=== PATIENT | female | born 1995 | race Caucasian/White ===

== ENCOUNTER → 2017-03-02 | Outpatient (CLI) | payer SELFPAY | END | disposition home or self-care (01) | LOC: LABWHC1 12:01 | PROVIDERS: ATTEND Obstetrics & Gynecology | DX: Z34.00 Encounter for supervision of normal first pregnancy, unspecified trimester (principal); Z3A.00 Weeks of gestation of pregnancy not specified | CPT/HCPCS: 36415; 84702 ==

== ENCOUNTER 2017-11-22 11:56 | Emergency (ER) | payer OTHER ==
--- NOTE | 2017-11-22 13:19 | ED ---
Female Urogenital HPI - General Chief complaint: Vaginal Bleeding Stated complaint: and bleeding Time Seen by Provider: 11/22/17 12:30 Source: patient, family, RN notes reviewed, old records reviewed Mode of arrival: ambulatory Limitations: no limitations - History of Present Illness Initial comments: 22-year-old female presents emergency room with a chief complaint of vaginal bleeding. She reports that she is a proximally 5-6 weeks . She states that she started bleeding last night. She states that she has had one previous miscarriage. She was supposed to follow-up with Dr. Gibbs but has not been able to yet. She denies any significant pain. Last Menstrual Period: 10/19/17 - Related Data Home Medications Medication Instructions Recorded Confirmed No Known Home Medications [No 11/22/17 11/22/17 Known Home Medications] Allergies Allergy/AdvReac Type Severity Reaction Status Date / Time No Known Allergies Allergy Verified 11/22/17 13:14 Review of Systems ROS Statement: Those systems with pertinent positive or pertinent negative responses have been documented in the HPI. ROS Other: All systems not noted in ROS Statement are negative. Constitutional: Denies: fever, chills Eyes: Denies: eye pain ENT: Denies: ear pain Respiratory: Denies: cough, dyspnea Cardiovascular: Denies: chest pain, palpitations Endocrine: Denies: fatigue Gastrointestinal: Denies: abdominal pain, nausea, melena Genitourinary: Reports: abnormal menses Musculoskeletal: Denies: back pain Skin: Denies: lesions Neurological: Denies: headache, weakness Psychiatric: Denies: anxiety Past Medical History Past Medical History: No Reported History History of Any Multi-Drug Resistant Organisms: None Reported Past Surgical History: No Surgical Hx Reported Past Psychological History: No Psychological Hx Reported Smoking Status: Current every day smoker Past Alcohol Use History: None Reported Past Drug Use History: Marijuana General Exam - General Exam Comments Initial Comments: This patient is a 22-year-old female. No acute distress. Limitations: no limitations General appearance: alert, in no apparent distress Head exam: Present: atraumatic, normocephalic, normal inspection Eye exam: Present: normal appearance, PERRL, EOMI. Absent: scleral icterus, conjunctival injection, periorbital swelling ENT exam: Present: normal exam, mucous membranes moist Neck exam: Present: tenderness Respiratory exam: Present: normal lung sounds bilaterally External exam: Present: normal external exam Speculum exam: Present: vaginal bleeding (Cervix appears closed with patient does have bright red then vaginal bleeding. No significant clots.). Absent: normal speculum exam By manual exam: Present: normal by manual exam. Absent: cervical motion tenderness, adnexal tenderness, adnexal mass, uterine enlargement Extremities exam: Present: normal inspection, full ROM, normal capillary refill. Absent: tenderness, pedal edema, joint swelling, calf tenderness Back exam: Present: normal inspection Neurological exam: Present: alert, oriented X3, CN II-XII intact Psychiatric exam: Present: normal affect, normal mood Skin exam: Present: warm, dry, intact, normal color. Absent: rash Course Vital Signs 11/22/17 11/22/17 12:17 14:35 Temperature 98.7 F 98.0 F Pulse Rate 102 H 82 Respiratory 18 20 Rate Blood Pressure 128/73 118/74 O2 Sat by Pulse 100 99 Oximetry Medical Decision Making - Medical Decision Making 22-year-old female who says that she is approximately five weeks report she said one day vaginal bleeding. She has no significant cramping. Patient has a positive blood type. Serum hCG is 61. This is very low for 5 to 6 weeks of . Discussed the abdominal ultrasound did not show any evidence of intrauterine .Endometrium is not thickened. Patient does have significant bleeding on vaginal exam. Patient informed that she's having a miscarriage. Discuss repeat serum hCG in two days. All questions were answered and return parameters were discussed. - Lab Data Lab Results 11/22/17 11/22/17 11/22/17 Range/Units 12:00 12:41 12:41 HCG, Quant mIU/mL Urine Color Urine Appearance (Clear) Urine pH (5.0-8.0) Ur Specific Mc[place] (1.001-1.035) Urine Protein (Negative) Urine Glucose (UA) (Negative) Urine Ketones (Negative) Urine Blood (Negative) Urine Nitrite (Negative) Urine Bilirubin (Negative) Urine Urobilinogen (<2.0) mg/dL Ur Leukocyte Esterase (Negative) Urine RBC (0-5) /hpf Urine WBC (0-5) /hpf Ur Squamous Epith Cells (0-4) /hpf Urine Mucus (None) /hpf Urine HCG, Qual Not Detected (Not Detectd) Trichomonas Ag (Rapid) Negative (Negative) Blood Type O Positive Blood Type Recheck No 11/22/17 11/22/17 Range/Units 12:41 12:41 HCG, Quant 16.4 mIU/mL Urine Color Yellow Urine Appearance Clear (Clear) Urine pH 7.0 (5.0-8.0) Ur Specific Mc[place] 1.008 (1.001-1.035) Urine Protein Trace H (Negative) Urine Glucose (UA) Negative (Negative) Urine Ketones Negative (Negative) Urine Blood Moderate H (Negative) Urine Nitrite Negative (Negative) Urine Bilirubin Negative (Negative) Urine Urobilinogen <2.0 (<2.0) mg/dL Ur Leukocyte Esterase Negative (Negative) Urine RBC 157 H (0-5) /hpf Urine WBC 21 H (0-5) /hpf Ur Squamous Epith Cells 1 (0-4) /hpf Urine Mucus Rare H (None) /hpf Urine HCG, Qual (Not Detectd) Trichomonas Ag (Rapid) (Negative) Blood Type Blood Type Recheck - Radiology Data Radiology results: report reviewed Ultrasound was negative for intrauterine Disposition Clinical Impression: Threatened miscarriage in early Disposition: HOME SELF-CARE Condition: Good Instructions: Threatened Miscarriage (ED) Additional Instructions: Patient denies repeat her hCG levels with 2 days. Follow-up with [facility]. Return to emergency department if any alarming signs or symptoms occur. Referrals: None,Stated [Primary Care Provider] - 1-2 days Time of Disposition: 14:23
[2017-11-22 13:26] LABS: Appearance,Urine Clear (Clear); Bilirubin,Urine Negative (Negative); Blood,Urine Moderate (Negative); Color,Urine Yellow; Glucose,Urine (UA) Negative (Negative); Ketones,Urine Negative (Negative); Leukocyte Esterase,Urine Negative (Negative); Mucus,Urine Rare /hpf; Nitrite,Urine Negative (Negative); Protein,Urine Trace (Negative); RBC,Urine 157 /hpf (0-5); Specific Gravity,Urine 1.008 (1.001-1.035); Squamous Epithelial Cell,Urine 1 /hpf (0-4); Urobilinogen,Urine <2.0 mg/dL (<2.0); WBC,Urine 21 /hpf (0-5)
--- NOTE | 2017-11-22 14:21 | US ---
EXAMINATION TYPE: US OB <= 14 wk fetus DATE OF EXAM: 11/22/2017 COMPARISON: NONE CLINICAL HISTORY: pain. bleeding with EXAM PERFORMED: Transabdominal (TA) EXAM MEASUREMENTS: GESTATIONAL AGE / DATING Physician Established: not established Dates by LMP: (4 weeks/6 days) EDC: 07/26/2018 Dates by First Scan: this is first scan Dates by Current Scan for: no IUP identified MATERNAL ANATOMY Uterus: 7.2 x 3.9 x 4.1 cm Right Ovary: 2.5 x 1.5 x 1.8 cm Left Ovary: 2.8 x 2.2 x 2.0 cm Post CDS / Adnexa: wnl Presence of free fluid: no free fluid GESTATION / SURVEY CRL: not identified MSD: not identified Yolk Sac (normal less than 6mm): not identified Date of LMP: 10/19/2017 Beta HcG (if available): 16.4 Anteverted uterus is seen. Endometrium only measures 6 mm in thickness on transabdominal evaluation. No gestational sac, yolk sac, or pole is identified. No free fluid is seen in pelvic cul-de-sac . Both ovaries are seen. No suspicious extraovarian adnexal masses are noted. IMPRESSION: Ultrasound findings when correlated with beta-hCG either reflect spontaneous or too early to visualize intrauterine , former would be favored if there is significant bleeding. Ectopic is not entirely excluded. Serial beta hCG and ultrasound follow-up is advised.
[2017-11-22 14:36] VITALS: BP 118/74; PULSE 82; RESP 20; TEMP 98
[2017-11-23 09:49] LABS: Chlamydia trachomatis rRNA Not detected (Not detected); Neisseria gonorrhoeae rRNA Not detected (Not detected)
== END 2017-11-22 14:36 | disposition home or self-care (01) ==
LOC: EC 11:56
DX: O20.0 Threatened abortion (principal); O99.331 Smoking (tobacco) complicating pregnancy, first trimester; F17.200 Nicotine dependence, unspecified, uncomplicated; Z3A.01 Less than 8 weeks gestation of pregnancy
CPT/HCPCS: 36415; 76801; 81001; 81025; 84702; 86900; 86901; 87070; 87205; 87491; 87591; 87808; 99284

== ENCOUNTER → 2017-11-24 | Outpatient (CLI) | payer OTHER | END | disposition home or self-care (01) | LOC: LABWHC1 15:17 | PROVIDERS: ATTEND Physician Assistant Medical | DX: O20.0 Threatened abortion (principal); Z3A.00 Weeks of gestation of pregnancy not specified | CPT/HCPCS: 36415; 84702 ==

== ENCOUNTER → 2018-02-16 | Outpatient (CLI) | payer OTHER | END | disposition home or self-care (01) | LOC: LABWHC1 11:14 | PROVIDERS: ATTEND Obstetrics & Gynecology | DX: Z34.80 Encounter for supervision of other normal pregnancy, unspecified trimester (principal); Z3A.00 Weeks of gestation of pregnancy not specified | CPT/HCPCS: 36415; 84702; 86850; 86900; 86901 ==

== ENCOUNTER → 2018-02-18 | Outpatient (CLI) | payer OTHER ==
--- NOTE | 2018-02-19 14:17 | US ---
EXAMINATION TYPE: Transabdominal DATE OF EXAM: 01/25/18 COMPARISON: NONE CLINICAL HISTORY: 23-year-old female O46.91 BLEEDING SPOTTING. EXAM PERFORMED: Transabdominal (TA) FINDINGS: EXAM MEASUREMENTS: GESTATIONAL AGE / DATING Physician Established: not established Dates by LMP: (5 weeks/1 days) EDC: 10/20/2018 Dates by First Scan: this is first scan Dates by Current Scan for: by gestational sac only (5 weeks/1 days) EDC: 10/20/2018 MATERNAL ANATOMY Uterus: 7.9 x 4.3 x 5.9cm Right Ovary: 2.7 x 1.4 x 2.7 cm Left Ovary: 3.0 x 1.4 x 2.5 cm Post CDS / Adnexa: no free fluid GESTATION / SURVEY CRL: not identified MSD: 1.1 cm ( 5 weeks/1 days) Yolk Sac (normal less than 6mm): 0.4 cm Date of LMP: 01/13/2018 Boat Outfitter notes: Appears as normally developing early , gestational sac and yolk sac seen. GS measures 5 weeks one day, and correlates with LMP. IMPRESSION: 1. Single live uterine with estimated gestational age of 5 weeks 1 day which is concordant with measurements. Gestational sac and yolk sac are seen at this time. Follow-up can be considered to ensure the appearance of a pole with cardiac activity. 2. Otherwise, complete survey recommended at 18-20 weeks.
== END | disposition home or self-care (01) ==
LOC: RADUSWWP 15:33
PROVIDERS: ATTEND Obstetrics & Gynecology
DX: O46.91 Antepartum hemorrhage, unspecified, first trimester (principal); Z3A.01 Less than 8 weeks gestation of pregnancy
CPT/HCPCS: 76801

== ENCOUNTER → 2018-03-01 | Outpatient (CLI) | payer OTHER ==
--- NOTE | 2018-03-01 12:40 | US ---
EXAMINATION TYPE: Transabdominal DATE OF EXAM: 01/25/18 COMPARISON: NONE CLINICAL HISTORY: 23-year-old female Z36. Dates. Re-evaluate. EXAM PERFORMED: Transabdominal (TA) FINDINGS: EXAM MEASUREMENTS: GESTATIONAL AGE / DATING Dates by LMP: (6 weeks/5 days) EDC: 10/20/2018 Dates by First Scan: (6 weeks/5 days) EDC: 10/20/2018 Dates by Current Scan for: ( 7 weeks/2 days) EDC: 10/16/2018 MATERNAL ANATOMY Uterus: 8.5 x 6.0 x 4.7 cm Right Ovary: 4.0 x 2.0 x 1.6 cm Left Ovary: 3.6 x 2.0 x 1.3 cm Post CDS / Adnexa: no free fluid Presence of free fluid: no free fluid Presence of corpus luteal cyst: right ovarian lesion with peripheral blood flow= 2.5 x 1.1 x 1.1 cm s uggestive of a corpus luteum. Presence of subchorionic bleed: no GESTATION / SURVEY CRL: 1.1 cm (7 weeks/2 days) MSD: Seen, not measured Yolk Sac (normal less than 6mm): 2.6 mm Heart Rate: 144 bpm Rhythm: Normal IUP: Viable IUP Date of LMP: 01/13/2018, Proof Load Mechanic notes: Single live IUP measuring 7 weeks 2 days. IMPRESSION: 1. Single live intrauterine with estimated gestational age of 6 weeks 5 days by both LMP an d prior dating scan. Age by current ultrasound biometry (crown-rump length) is 7 weeks 2 days which e quates to 3 days more growth than expected, but is within acceptable limits. 2. A 2.5 cm right ovarian corpus luteum. 3. Complete survey recommended at 18-20 weeks.
== END | disposition home or self-care (01) ==
LOC: RADUSWWP 11:48
PROVIDERS: ATTEND Obstetrics & Gynecology
DX: Z36.89 Encounter for other specified antenatal screening (principal); Z3A.01 Less than 8 weeks gestation of pregnancy
CPT/HCPCS: 76801

== ENCOUNTER → 2018-07-09 | Outpatient (CLI) | payer OTHER ==
[2018-07-09 11:25] LABS: HCT 35.5 % (34.0-46.0); HGB 11.5 gm/dL (11.4-16.0); MCH 32.3 pg (25.0-35.0); MCHC 32.4 g/dL (31.0-37.0); MCV 99.5 fL (80.0-100.0); Mean Platelet Volume 7.2; Platelet Count 272 k/uL (150-450); RBC 3.57 m/uL (3.80-5.40); WBC 10.7 k/uL (3.8-10.6)
== END | disposition home or self-care (01) ==
LOC: LABWHC1 09:36
PROVIDERS: ATTEND Obstetrics & Gynecology
DX: Z34.82 Encounter for supervision of other normal pregnancy, second trimester (principal)
CPT/HCPCS: 36415; 82950; 85027

== ENCOUNTER 2018-10-05 15:25 | Outpatient (CLI) | payer OTHER ==
[2018-10-05 16:09] LABS: Basophils % (A) 0 %; Eosinophils # (A) 0.1 k/uL (0-0.7); Eosinophils % (A) 1 %; HCT 35.1 % (34.0-46.0); HGB 11.4 gm/dL (11.4-16.0); Lymphocytes # (A) 1.4 k/uL (1.0-4.8); Lymphocytes % (A) 13 %; MCH 31.5 pg (25.0-35.0); MCHC 32.6 g/dL (31.0-37.0); MCV 96.5 fL (80.0-100.0); Mean Platelet Volume 7.5; Monocytes # (A) 0.5 k/uL (0-1.0); Monocytes % (A) 5 %; Neutrophils # (A) 8.7 k/uL (1.3-7.7); Neutrophils % (A) 80 %; Platelet Count 266 k/uL (150-450); RBC 3.63 m/uL (3.80-5.40); RDW 13.2 % (11.5-15.5); WBC 10.9 k/uL (3.8-10.6)
[2018-10-05 16:14] LABS: Appearance,Urine Cloudy (Clear); Bacteria,Urine Occasional /hpf; Bilirubin,Urine Negative (Negative); Blood,Urine Negative (Negative); Budding Yeast,Urine Occasional /hpf; Color,Urine Yellow; Glucose,Urine (UA) Negative (Negative); Ketones,Urine Negative (Negative); Leukocyte Esterase,Urine Trace (Negative); Mucus,Urine Occasional /hpf; Nitrite,Urine Negative (Negative); PH, Urine 6.5 (5.0-8.0); Protein,Urine Trace (Negative); RBC,Urine 3 /hpf (0-5); Specific Gravity,Urine 1.019 (1.001-1.035); Squamous Epithelial Cell,Urine 6 /hpf (0-4); Urobilinogen,Urine <2.0 mg/dL (<2.0); WBC,Urine 8 /hpf (0-5)
[2018-10-05 16:20] LABS: ALT 30 U/L (9-52); AST 20 U/L (14-36); Blood Urea Nitrogen 9 mg/dL (7-17); LDH 397 U/L (313-618); Uric Acid 4.8 mg/dL (3.7-7.4)
[2018-10-05 16:46] LABS: Creatinine,Urine Random 179.7 mg/dL
--- NOTE | 2018-10-20 07:51 | P.MSEPDOC ---
Presenting Problems - Arrival Data Date of Arrival on Unit: 10/05/18 Time of Arrival on Unit: 15:25 Mode of Transport: Ambulatory - Complaint Comment: pt sent over from office by Dr. Gibbs for preeclampsia work up due to elevated bp in office, headaches and swelling, Medical History - Information : 3 Para: 0 Term: 0 : 0 Abortions: Spontaneous or Elective: 0 Number of Living Children: 0 Physician Notification (Pre) - Physician Notified Physician Notified Date: 10/05/18 Physician Notified Time: 16:54 Physician/Practitioner Notifed:: Dr. Godinez Spoke With: Dr. Godinez - Notification Comment Comment: Dr. Godinez battalion chief at this time, he was in dept and saw lab results and bp's, reactive nst, orders to discharge pt home, follow up at next scheduled appt on Oct 14 Disposition - Disposition OB Disposition: Triage, Discharge to home, Written follow up instructions reviewed Discharge Date: 10/05/18 Discharge Time: 17:05 I agree with the RN Medical Screening Exam: Yes Risk & Benefit of care provided described in d/c instruction: Yes Diagnosis: GESTATIONAL HTN W/O SIGNIFICANT PROTEINURIA, THIRD TRIMESTER
== END 2018-10-05 17:05 | disposition home or self-care (01) ==
LOC: FBPOP 15:25
PROVIDERS: ATTEND Obstetrics & Gynecology
DX: O13.3 Gestational [pregnancy-induced] hypertension without significant proteinuria, third trimester (principal); Z3A.00 Weeks of gestation of pregnancy not specified
CPT/HCPCS: 59025; 81001; 82565; 82570; 83615; 84156; 84450; 84460; 84520; 84550; 85025

== ENCOUNTER 2018-10-14 09:33 | Outpatient (CLI) | payer OTHER ==
[2018-10-14 12:35] VITALS: BP 125/72; PULSE 97; RESP 18; TEMP 97.3
--- NOTE | 2018-11-07 17:40 | P.MSEPDOC ---
Presenting Problems - Arrival Data Date of Arrival on Unit: 10/14/18 Time of Arrival on Unit: 09:33 Mode of Transport: Ambulatory - Complaint OB-Reason for Admission/Chief Complaint: Rule Out SROM Comment: pt thinks she had SROM at 0630 this am Medical History - Information : 3 Para: 0 Term: 0 : 0 Abortions: Spontaneous or Elective: 0 Number of Living Children: 0 - Gestational Age Gestational Age by ERICKA (wks/days): 39 Weeks and 1 Days - History Complications: GBS+ Review of Systems - Review of Systems Constitutional: No problems Breast: No problems ENT: No problems Cardiovascular: No problems Respiratory: No problems Gastrointestinal: No problems Genitourinary: No problems Musculoskeletal: No problems Neurological: No problems Skin: No problems Vital Signs - Temperature Temperature: 97.3 F Temperature Source: Temporal Artery Scan - Pulse Right Brachial Pulse Rate: 97 Pulse Assessment Method: Automatic Cuff - Respirations Respiratory Rate: 18 Oxygen Delivery Method: Room Air - Blood Pressure Right Arm Blood Pressure: 125/72 Blood Pressure Mean: 89 Blood Pressure Source: Automatic Cuff Medical Screen Scoring (Pre) - Cervical Exam Dilation: 0 cm = 0 Effacement: More than 50% = 2 Membranes: Intact - Uterine Contractions Frequency: N/A Duration: N/A Intensity: N/A - Maternal Vital Signs Maternal Temperature: N/A Signs of Preeclampsia: N/A Maternal Respirations: N/A - Pain Assessment Pain Scale Used: Numeric (1 - 10) Pain Intensity: 0 - Maternal Trauma Maternal Trauma: N/A - Assessment Baseline FHR: 120 Heart Rate - NICHD Category: Category I (Normal) = 0 NST: Reactive Position: N/A Station: N/A - Total Score Total Score (Pre): 2 - Level of Risk Level of Risk: Low (0-5) Physician Notification (Pre) - Physician Notified Physician Notified Date: 10/14/18 Physician Notified Time: 10:10 Physician/Practitioner Notifed:: Dr. Gibbs Spoke With: Dr. Gibbs New Order Received: Yes - Notification Comment Comment: Dr. Gibbs notified of negative amniosure, reactive nst, irregular contractions, and cervical exam, orders to discharge pt home Disposition - Disposition OB Disposition: Triage, Discharge to home, Written follow up instructions reviewed Discharge Date: 10/14/18 Discharge Time: 10:28 I agree with the RN Medical Screening Exam: Yes Risk & Benefit of care provided described in d/c instruction: Yes Diagnosis: FALSE LABOR AT OR AFTER 37 COMPLETED WEEKS OF GESTATION
== END 2018-10-14 10:30 | disposition home or self-care (01) ==
LOC: FBPOP 09:33
PROVIDERS: ATTEND Obstetrics & Gynecology
DX: O47.1 False labor at or after 37 completed weeks of gestation (principal); Z3A.39 39 weeks gestation of pregnancy
CPT/HCPCS: 59025; 84112; G0463; 99213

== ENCOUNTER 2018-10-15 04:20 | Inpatient (IN) | payer OTHER ==
[2018-10-15 05:11] VITALS: RESP 16
[2018-10-15] MEDS ORDERED: OXYTOCIN 10 UNIT/ML 1 ML VIAL IM PRN (05:41)
[2018-10-15] MEDS ORDERED: LIDOCAINE 0.5% (PF) 5 MG/ML (50 ML SDV) SQ PRN (05:41)
[2018-10-15] MEDS ORDERED: METHYLERGONOVINE 0.2 MG/ML 1 ML AMP IM PRN (05:41)
[2018-10-15] MEDS ORDERED: AMPICILLIN 2,000 MG in SODIUM CHLORIDE 0.9% 100 ML IVPB STA (05:41)
[2018-10-15] MEDS ORDERED: CARBOPROST TROMETHAMINE 250 MCG/ML 1 ML AMP IM PRN (05:41)
[2018-10-15] MEDS ORDERED: TERBUTALINE 1 MG/ML VIAL SQ PRN (05:41)
[2018-10-15] MEDS ORDERED: OXYTOCIN 20 UNITS/1000 ML NS 1,000 ML IV SCH ×2 (05:45→16:15)
[2018-10-15] MEDS: LACTATED RINGERS 1,000 ML IV SCH ×2 (06:00→10:54)
[2018-10-15] MEDS: BUTORPHANOL 1 MG/ML 1 ML VIAL IV PRN ×2 (06:06→08:04)
[2018-10-15 06:12] LABS: Basophils % (A) 0 %; Eosinophils # (A) 0.2 k/uL (0-0.7); Eosinophils % (A) 2 %; HCT 37.6 % (34.0-46.0); HGB 12.3 gm/dL (11.4-16.0); Lymphocytes # (A) 1.5 k/uL (1.0-4.8); Lymphocytes % (A) 11 %; MCH 31.7 pg (25.0-35.0); MCHC 32.7 g/dL (31.0-37.0); Mean Platelet Volume 6.9; Monocytes # (A) 0.6 k/uL (0-1.0); Monocytes % (A) 4 %; Neutrophils # (A) 11.7 k/uL (1.3-7.7); Neutrophils % (A) 82 %; Platelet Count 290 k/uL (150-450); RBC 3.87 m/uL (3.80-5.40); RDW 13.3 % (11.5-15.5); WBC 14.3 k/uL (3.8-10.6)
[2018-10-15 06:18] VITALS: BMI 27.8
[2018-10-15] MEDS: AMPICILLIN 1,000 MG in SODIUM CHLORIDE 0.9% 50 ML IVPB SCH ×2 (10:03→13:49)
[2018-10-15] MEDS ORDERED: fentaNYL (PF) 50 MCG/ML 5 ML AMP ONE (10:20)
[2018-10-15] MEDS ORDERED: ROPIVACAINE 5MG/ML 20ML VIAL ONE (10:20)
[2018-10-15] MEDS ORDERED: SODIUM CHLORIDE 0.9% 100 ML BAG ONE (10:20)
[2018-10-15] MEDS ORDERED: diphenhydrAMINE 50 MG/ML 1 ML VIAL IVP PRN ×2 (16:04)
[2018-10-15] MEDS ORDERED: LANOLIN CREAM 5 GM TUBE TOPICAL PRN (16:04)
[2018-10-15] MEDS ORDERED: ZOLPIDEM 5 MG TAB PO PRN (16:04)
[2018-10-15] MEDS ORDERED: SIMETHICONE 80 MG CHEWABLE PO PRN (16:04)
[2018-10-15] MEDS ORDERED: BENZOCAINE/MENTHOL SPRAY 1 GM/SPRAY AEROSOL TOPICAL PRN (16:04)
[2018-10-15] MEDS ORDERED: HYDROCORTISONE 2.5% RECTAL CREAM 30 GM TUBE RECTAL PRN (16:04)
[2018-10-15] MEDS ORDERED: WITCH HAZEL 1 EACH MED..PAD TOPICAL PRN (16:04)
[2018-10-15] MEDS ORDERED: diphenhydrAMINE 50 MG CAP PO PRN (16:04)
[2018-10-15] MEDS ORDERED: diphenhydrAMINE 25 MG CAP PO PRN (16:04)
--- NOTE | 2018-10-15 16:07 | P.PROBDLV ---
Vaginal Delivery Note - . Vaginal Delivery Note: 23-year-old presents at 39 weeks and 2 days in labor. Her cervix was 1 cm dilated, 80% effaced, and -2 station. She is fritz every 3 minutes. heart tones 130-135 with moderate variability and reactive. Rating the pain an 8 out of 10. Amniotomy was performed at 7:31 AM and thick meconium fluid was seen. When her cervix was still 1 cm after a couple hours I did start some Pitocin augmentation. Her cervix was completely dilated at 1508. She pushed, and delivered a viable female infant over intact perineum under epidural anesthesia at 1535. Head delivered OA, anterior shoulder delivered gentle downward traction followed by posterior shoulder and rest of body. Nose and mouth bulb suctioned, cord clamped and cut, infant placed on mother's abdomen. Apgars 9, 9, weight 7 lbs. 2 oz. Placenta delivered spontaneously, intact with three-vessel cord at 1537. Vagina, cervix, and perineum were inspected. First-degree midline laceration was repaired with 3-0 Vicryl. Estimated blood loss 250 mL. Mother and baby in stable condition.
--- NOTE | 2018-10-15 16:10 | P.HPOB ---
History of Present Illness H&P Date: 10/15/18 Chief Complaint: Normal labor 23-year-old presented at 39 weeks and 2 days in labor. Her cervix was 170 dilated, 80% effaced, -2 station. She is fritz every 3 minutes. Rating the pain an 8 out of 10. She had been in triage a few times and was unable to cope with the pain outpatient any longer. Review of Systems All systems: negative Constitutional: Denies chills, Denies fever Eyes: denies blurred vision, denies pain Ears, nose, mouth and throat: Denies headache, Denies sore throat Cardiovascular: Denies chest pain, Denies shortness of breath Respiratory: Denies cough Gastrointestinal: Denies abdominal pain, Denies diarrhea, Denies nausea, Denies vomiting Genitourinary: Denies dysuria, Denies hematuria Musculoskeletal: Denies myalgias Integumentary: Denies pruritus, Denies rash Neurological: Denies numbness, Denies weakness Psychiatric: Denies anxiety, Denies depression Endocrine: Denies fatigue, Denies weight change Past Medical History Past Medical History: Asthma Additional Past Medical History / Comment(s): OB history: She's had 2 previous spontaneous abortions. This is her third . Her blood type is O+, antibody is negative, rubella immune, hepatitis B negative, RPR nonreactive, GBS positive. History of Any Multi-Drug Resistant Organisms: None Reported Past Surgical History: No Surgical Hx Reported Past Anesthesia/Blood Transfusion Reactions: No Reported Reaction Past Psychological History: No Psychological Hx Reported Smoking Status: Former smoker Past Alcohol Use History: None Reported Past Drug Use History: Marijuana Additional Drug Use History / Comment(s): states quit with - Past Family History Brother(s) Family Medical History: Musculoskeletal Disorder Additional Family Medical History / Comment(s): born with no arms Medications and Allergies Home Medications Medication Instructions Recorded Confirmed Type Pnv No.95/Ferrous Fum/Folic AC 1 each PO DAILY 10/05/18 10/15/18 History [ Multivitamin Tablet] Allergies Allergy/AdvReac Type Severity Reaction Status Date / Time No Known Allergies Allergy Verified 10/15/18 04:32 Exam Osteopathic Statement: *. No significant issues noted on an osteopathic structural exam other than those noted in the History and Physical/Consult. Vital Signs Temp Pulse Resp BP 10/15/18 15:53 98.4 F 104 H 16 130/70 10/15/18 04:32 97.3 F L 93 16 134/72 Intake and Output 10/15/18 10/15/18 10/15/18 06:59 14:59 22:59 Output Total 200 Balance -200 Output: Urine 200 Other: # Voids 2 Weight 73.482 kg Heart: Regular rate and rhythm Lungs: Clear to auscultation bilaterally Abdomen: Soft, nontender Extremities: Negative Homans sign Results Result Diagrams: 10/15/18 06:00 Abnormal Lab Results - Last 24 Hours (Table) 10/15/18 Range/Units 06:00 WBC 14.3 H (3.8-10.6) k/uL Neutrophils # 11.7 H (1.3-7.7) k/uL Assessment and Plan (1) Normal labor Current Visit: Yes Status: Acute Code(s): O80 - ENCOUNTER FOR FULL-TERM UNCOMPLICATED DELIVERY; Z37.9 - OUTCOME OF DELIVERY, UNSPECIFIED SNOMED Code(s ): 73238231 Plan: 1. Admit to family place 2. Expectant management 3. Anticipate normal vaginal delivery
[2018-10-15] MEDS: IBUPROFEN 600 MG TAB PO PRN ×2 (16:15→23:14)
[2018-10-15] MEDS: ACETAMINOPHEN TAB 325 MG TAB PO PRN (20:05)
[2018-10-15] MEDS: SENNOSIDES-DOCUSATE SODIUM 1 EACH TAB PO SCH (20:06)
[2018-10-16] MEDS: ACETAMINOPHEN TAB 325 MG TAB PO PRN (04:04)
--- NOTE | 2018-10-16 07:18 | P.DS ---
Providers Date of admission: 10/15/18 05:39 Expected date of discharge: 10/16/18 Attending physician: Liz Gibbs Primary care physician: Stated None - Discharge Diagnosis(es) (1) Normal labor Current Visit: Yes Status: Resolved (2) Normal vaginal delivery Current Visit: Yes Status: Acute Hospital Course: Patient presented in labor. She underwent a normal vaginal delivery with Pitocin augmentation and an epidural. Her course was uncomplicated. She'll be discharged home day #1 in stable condition to follow-up with me in 6 weeks. Plan - Discharge Summary New Discharge Prescriptions: New Ibuprofen [Motrin] 600 mg PO Q6HR PRN #30 tab PRN Reason: Mild Pain Or Fever >= 100.5 No Action Pnv No.95/Ferrous Fum/Folic AC [ Multivitamin Tablet] 1 each PO DAILY Discharge Medication List Pnv No.95/Ferrous Fum/Folic AC [ Multivitamin Tablet] 1 each PO DAILY [History] Ibuprofen [Motrin] 600 mg PO Q6HR PRN #30 tab 10/16/18 [Rx] Follow up Appointment(s)/Referral(s): Liz Gibbs DO [Doctor of Osteopathic Medicine] - 6 Weeks Discharge Disposition: HOME SELF-CARE
[2018-10-16] MEDS: SENNOSIDES-DOCUSATE SODIUM 1 EACH TAB PO SCH (10:25)
[2018-10-16] MEDS: IBUPROFEN 600 MG TAB PO PRN (11:51)
[2018-10-16 16:35] VITALS: BP 114/76
[2018-10-16 17:23] VITALS: PULSE 100; TEMP 98.8
== END 2018-10-16 17:00 | disposition home or self-care (01) | DRG 807 ==
LOC: FBPOP 04:20 → 4FBP 05:39
PROVIDERS: ADMIT Obstetrics & Gynecology; ATTEND Obstetrics & Gynecology
PROC: 0HQ9XZZ Repair Perineum Skin, External Approach (ICD-10-PCS; principal; 2018-10-15)
PROC: 00HU33Z Insertion of Infusion Device into Spinal Canal, Percutaneous Approach (ICD-10-PCS; principal; 2018-10-15)
PROC: 3E0R3NZ Introduction of Analgesics, Hypnotics, Sedatives into Spinal Canal, Percutaneous Approach (ICD-10-PCS; principal; 2018-10-15)
PROC: 10E0XZZ Delivery of Products of Conception, External Approach (ICD-10-PCS; principal; 2018-10-15)
PROC: 10907ZC Drainage of Amniotic Fluid, Therapeutic from Products of Conception, Via Natural or Artificial Opening (ICD-10-PCS; principal; 2018-10-15)
DX: O70.0 First degree perineal laceration during delivery (principal); Z37.0 Single live birth; O77.0 Labor and delivery complicated by meconium in amniotic fluid; O99.824 Streptococcus B carrier state complicating childbirth; Z3A.39 39 weeks gestation of pregnancy; Z87.891 Personal history of nicotine dependence
CPT/HCPCS: 59025; 85025; 86850; 86900; 86901; 99213

== ENCOUNTER → 2019-03-30 | Outpatient (CLI) | payer OTHER | END | disposition home or self-care (01) | LOC: LABWHC1 14:52 | PROVIDERS: ATTEND Obstetrics & Gynecology | DX: N92.6 Irregular menstruation, unspecified (principal) | CPT/HCPCS: 36415; 84702 ==

== ENCOUNTER → 2020-09-05 | Outpatient (CLI) | payer OTHER | END | disposition home or self-care (01) | LOC: LABWHC1 12:53 | PROVIDERS: ATTEND Internal Medicine | DX: Z20.828 Contact with and (suspected) exposure to other viral communicable diseases (principal) | CPT/HCPCS: U0003; C9803 ==

== ENCOUNTER 2022-03-03 15:42 | Outpatient (CLI) | payer OTHER ==
[2022-03-03 16:22] LABS: Amorphous Sediment,Urine Rare /hpf; Appearance,Urine Cloudy (Clear); Bilirubin,Urine Negative (Negative); Blood,Urine Negative (Negative); Color,Urine Yellow; Glucose,Urine (UA) Negative (Negative); Ketones,Urine Negative (Negative); Leukocyte Esterase,Urine Small (Negative); Mucus,Urine Rare /hpf; Nitrite,Urine Negative (Negative); Protein,Urine Negative (Negative); RBC,Urine 1 /hpf (0-5); Specific Gravity,Urine 1.009 (1.001-1.035); Squamous Epithelial Cell,Urine 3 /hpf (0-4); Urobilinogen,Urine <2.0 mg/dL (<2.0); WBC,Urine 3 /hpf (0-5)
[2022-03-03 17:15] VITALS: BP 124/73; PULSE 101; RESP 16; TEMP 97.3
--- NOTE | 2022-03-04 06:13 | P.MSEPDOC ---
Presenting Problems - Arrival Data Date of Arrival on Unit: 03/03/22 Time of Arrival on Unit: 15:42 Mode of Transport: Ambulatory - Complaint OB-Reason for Admission/Chief Complaint: Possible Onset of Labor Medical History - Information : 5 Para: 1 Term: 1 : 0 Abortions: Spontaneous or Elective: 3 Number of Living Children: 1 - Gestational Age Gestational Age by ERICKA (wks/days): 39 Weeks and 4 Days - History Complications: Smoker Review of Systems - Review of Systems Constitutional: No problems Breast: No problems ENT: No problems Cardiovascular: No problems Respiratory: No problems Gastrointestinal: No problems Genitourinary: No problems Musculoskeletal: No problems Neurological: No problems Skin: No problems Vital Signs - Temperature Temperature: 97.3 F Temperature Source: Temporal Artery Scan - Pulse Right Sitting Pulse Rate: 101 Pulse Assessment Method: Automatic Cuff - Respirations Respiratory Rate: 16 Oxygen Delivery Method: Room Air - Blood Pressure Right Arm Blood Pressure: 124/73 Blood Pressure Mean: 90 Blood Pressure Source: Automatic Cuff Medical Screen Scoring - Cervical Exam Dilation (cm): 2.5 Effacement (%): 70 Station: -2 Membranes: Intact - Assessment - Baby A Baseline FHR: 130 Heart Rate - NICHD Category: Category I (Normal) NST: Reactive Physician Notification - Physician Notified Physician Notified Date: 03/03/22 Physician Notified Time: 16:48 Physician: Liz Gibbs Order Received: Yes (d/c home) Maternal Triage Index - Non-Urgent/Priority 4 Non-Urgent Priority 4: Yes Criteria Met for Priority 4: reactive nst, no contractions on monitor or palpat ed, vag exam same as last week Disposition - Disposition OB Disposition: Discharge to home Discharge Date: 03/03/22 Discharge Time: 16:52 I agree with the RN Medical Screening Exam: Yes Case reviewed; plan agreed upon as documented in EMR&OBIX.: Yes Diagnosis: PRIMARY INADEQUATE CONTRACTIONS
== END 2022-03-03 16:52 | disposition home or self-care (01) ==
LOC: FBPOP 15:42
PROVIDERS: ATTEND Obstetrics & Gynecology
DX: O62.0 Primary inadequate contractions (principal); Z3A.39 39 weeks gestation of pregnancy
CPT/HCPCS: 59025; 81001; G0463; 99213

== ENCOUNTER 2022-03-08 01:56 | Inpatient (IN) | payer OTHER ==
[2022-03-08] MEDS ORDERED: METHYLERGONOVINE 0.2 MG/ML 1 ML AMP IM PRN (02:44)
[2022-03-08] MEDS ORDERED: CARBOPROST TROMETHAMINE 250 MCG/ML 1 ML AMP IM PRN (02:44)
[2022-03-08] MEDS ORDERED: LIDOCAINE 1% (PF) 10 MG/ML (30 ML SDV) SQ PRN (02:44)
[2022-03-08] MEDS ORDERED: TERBUTALINE 1 MG/ML VIAL SQ PRN (02:44)
[2022-03-08] MEDS ORDERED: OXYTOCIN 10 UNIT/ML 1 ML VIAL IM PRN (02:44)
[2022-03-08] MEDS ORDERED: LACTATED RINGERS 1,000 ML IV SCH (02:45)
[2022-03-08] MEDS ORDERED: OXYTOCIN 30 UNITS/500 ML NS 30 UNIT in SALINE 1 500ML.BAG IV SCH ×2 (02:45→04:15)
--- NOTE | 2022-03-08 02:50 | P.HPOB ---
History of Present Illness H&P Date: 03/08/22 Chief Complaint: Contractions This patient is a 27-year-old 5 para 1 female estimated date of confinement 03/06/2022 estimated gestational age 40-2/7 weeks who presents to labor and delivery with complaints of contractions. Patient is 5 cm dilated and completely effaced -2 station and having regular painful contractions. care is per Dr. Gibbs. It appears to be uncomplicated. Review of Systems Genitourinary: Reports Menstruation: Reports amenorrhea Past Medical History Past Medical History: Asthma Additional Past Medical History / Comment(s): OB history: Patient has had 1 previous vaginal delivery baby girl Her blood type is O+, antibody is negative, rubella immune, hepatitis B negative, RPR nonreactive, GBS was negative but history of positive was first . History of Any Multi-Drug Resistant Organisms: None Reported Past Surgical History: No Surgical Hx Reported Past Anesthesia/Blood Transfusion Reactions: No Reported Reaction Past Psychological History: No Psychological Hx Reported Smoking Status: Current every day smoker Past Alcohol Use History: None Reported Past Drug Use History: None Reported - Past Family History Brother(s) Family Medical History: Musculoskeletal Disorder Additional Family Medical History / Comment(s): born with no arms Medications and Allergies Home Medications Medication Instructions Recorded Confirmed Type Pnv No.95/Ferrous Fum/Folic AC 1 each PO DAILY 10/05/18 03/08/22 History [ Multivitamin Tablet] Allergies Allergy/AdvReac Type Severity Reaction Status Date / Time No Known Allergies Allergy Verified 03/03/22 16:04 Exam Intake and Output 03/07/22 03/07/22 03/08/22 14:59 22:59 06:59 Other: Weight 66.224 kg - OBG Physical Exam Abdomen: bowel sounds normal, no diffuse tenderness, no bruit present, no guarding noted, no hepatomegaly, no splenomegaly, no mass Vulva: both: normal Vagina: normal moisture, no discharge Cervix: no lesion (5 cm dilated completely effaced -2 station), no discharge Uterus: enlarged Assessment and Plan Assessment: This is a 27-year-old 5 para 1 female 40-2/7 weeks gestation with positive group B strep previous and active labor. Plan is artificial rupture membranes and anticipate vaginal delivery. We will begin prophylactic antibiotics. (1) Postmaturity , 40-42 weeks gestation Current Visit: Yes Status: Acute Code(s): O48.0 - POST-TERM SNOMED Code(s): 26574803549226 (2) Group B streptococcal carriage complicating Current Visit: Yes Status: Acute Code(s): O99.820 - STREPTOCOCCUS B CARRIER STATE COMPLICATING SNOMED Code(s): 904628758558347 (3) Normal labor Current Visit: No Status: Resolved Code(s): O80 - ENCOUNTER FOR FULL-TERM UNCOMPLICATED DELIVERY; Z37.9 - OUTCOME OF DELIVERY, UNSPECIFIED SNOMED Code(s): 00278566
[2022-03-08 02:55] LABS: Basophils % (A) 0 %; Eosinophils # (A) 0.2 k/uL (0-0.7); Eosinophils % (A) 1 %; HCT 35.4 % (34.0-46.0); HGB 11.6 gm/dL (11.4-16.0); Lymphocytes # (A) 2.6 k/uL (1.0-4.8); Lymphocytes % (A) 15 %; MCH 32.6 pg (25.0-35.0); MCHC 32.8 g/dL (31.0-37.0); MCV 99.2 fL (80.0-100.0); Mean Platelet Volume 7.5; Monocytes # (A) 0.7 k/uL (0-1.0); Monocytes % (A) 4 %; Neutrophils # (A) 13.4 k/uL (1.3-7.7); Neutrophils % (A) 78 %; Platelet Count 435 k/uL (150-450); RBC 3.57 m/uL (3.80-5.40); RDW 13.8 % (11.5-15.5); WBC 17.3 k/uL (3.8-10.6)
[2022-03-08] MEDS ORDERED: AMPICILLIN 2,000 MG in SODIUM CHLORIDE 0.9% 100 ML IVPB SCH (03:00)
[2022-03-08] MEDS ORDERED: ROPIVACAINE 5MG/ML 20ML VIAL ONE (03:09)
[2022-03-08] MEDS ORDERED: SODIUM CHLORIDE 0.9% 100 ML BAG ONE (03:09)
[2022-03-08] MEDS ORDERED: fentaNYL (PF) 50 MCG/ML 5 ML AMP ONE (03:09)
[2022-03-08 03:20] LABS: Glucose,Urine (UA) Negative (Negative); Ketones,Urine 1+ (Negative); Protein,Urine Trace (Negative)
[2022-03-08] MEDS ORDERED: bisacodyL 10 MG SUPP RECTAL PRN (04:07)
[2022-03-08] MEDS ORDERED: ACETAMINOPHEN TAB 325 MG TAB PO PRN (04:07)
[2022-03-08] MEDS ORDERED: SIMETHICONE 80 MG CHEWABLE PO PRN (04:07)
[2022-03-08] MEDS ORDERED: HYDROCORTISONE 2.5% RECTAL CREAM 30 GM TUBE RECTAL PRN (04:07)
[2022-03-08] MEDS ORDERED: diphenhydrAMINE 50 MG/ML 1 ML VIAL IVP PRN (04:07)
[2022-03-08] MEDS ORDERED: LANOLIN CREAM 5 GM TUBE TOPICAL PRN (04:07)
[2022-03-08] MEDS ORDERED: ZOLPIDEM 5 MG TAB PO PRN (04:07)
[2022-03-08] MEDS ORDERED: diphenhydrAMINE 25 MG CAP PO PRN (04:07)
[2022-03-08] MEDS ORDERED: BENZOCAINE/MENTHOL SPRAY 1 GM/SPRAY AEROSOL TOPICAL PRN (04:07)
--- NOTE | 2022-03-08 04:11 | P.PROBDLV ---
Vaginal Delivery Note - . Vaginal Delivery Note: Normal spontaneous vaginal delivery viable female Apgars 9 and 9 delivery time was 0351 hours. Please see dictated H&P for intimate details of this patient's admission. In brief summary this is a 27-year-old 5 para 1 female 40-2/7 weeks gestation admitted to labor and delivery complaints of contractions found to be in active labor. Patient has artificial rupture membranes for clear fluid at 5 cm dilated. She does receive a dose of antibiotics due to a history of positive strep with a previous . Patient does request an epidural for pain control and this is given with good relief. Labor progresses quickly she gets complete pushes the head to the perineum. Posterior perineum was supported we have controlled delivery of the 's head over the intact perineum. 's presentation straight occiput anterior. Mouth and nares are bulb suctioned. There is no evidence of nuchal cord. With gentle downward traction we then have deliver the anterior and posterior shoulder and rest this infant's body. This is a vigorous viable female infant Apgars are 9 and 9 delivery time was 0351 hours. After delivery of the infant. The is laid on the mother's abdomen. After the cord is done pulsating, it is doubly clamped and cut. The placenta is then spontaneously delivered intact. Inspection of perineum showssmall first-degree lacerations repaired with 3-0 Vicryl usual fashion excellent reapproximation is noted. All counts correct 3. There are no complications. and mother stable delivery room.
[2022-03-08] MEDS: IBUPROFEN 600 MG TAB PO PRN ×3 (06:03→22:10)
[2022-03-08] MEDS: SENNOSIDES-DOCUSATE SODIUM 1 EACH TAB PO SCH ×2 (08:16→22:11)
[2022-03-08 08:57] VITALS: RESP 14
[2022-03-08 12:40] LABS: Amphetamine Screen,Urine Not Detected (NotDetected); Barbiturate Screen,Urine Not Detected (NotDetected); Benzodiazepines Screen,Urine Not Detected (NotDetected); Cocaine Screen,Urine Not Detected (NotDetected); Methadone Screen, Urine Not Detected (NotDetected); Opiate Screen,Urine Not Detected (NotDetected); Oxycodone Screen, Urine Not Detected (NotDetected); Phencyclidine Screen,Urine Not Detected (NotDetected); Tricyclic Antidepressant,Urine Not Detected (NotDetected); Urn Cannabinoid Scrn Not Detected (NotDetected)
[2022-03-08 17:21] VITALS: TEMP 98.7
[2022-03-09 00:02] VITALS: BP 104/67; PULSE 87
[2022-03-09] MEDS: IBUPROFEN 600 MG TAB PO PRN (03:44)
[2022-03-09 07:42] LABS: Basophils # (A) 0.1 k/uL (0-0.2); Basophils % (A) 1 %; Eosinophils # (A) 0.2 k/uL (0-0.7); Eosinophils % (A) 2 %; HCT 30.7 % (34.0-46.0); Lymphocytes # (A) 3.9 k/uL (1.0-4.8); Lymphocytes % (A) 26 %; MCH 32.8 pg (25.0-35.0); MCHC 32.5 g/dL (31.0-37.0); MCV 100.9 fL (80.0-100.0); Macrocytosis Slight; Mean Platelet Volume 7.5; Monocytes # (A) 0.7 k/uL (0-1.0); Monocytes % (A) 5 %; Neutrophils # (A) 9.9 k/uL (1.3-7.7); Neutrophils % (A) 65 %; Platelet Count 345 k/uL (150-450); RBC 3.05 m/uL (3.80-5.40); RDW 13.4 % (11.5-15.5); WBC 15.2 k/uL (3.8-10.6)
--- NOTE | 2022-03-09 08:14 | P.DS ---
Providers Date of admission: 03/08/22 02:29 Expected date of discharge: 03/09/22 Attending physician: Liz Gibbs Primary care physician: Stated None - Discharge Diagnosis(es) (1) Normal vaginal delivery Current Visit: No Status: Acute Hospital Course: Patient presented in active labor. She underwent a normal vaginal delivery. course was uncomplicated. She denies nausea, vomiting, chest pain, shortness of breath or any calf pain. Patient will be discharged home day #1 in stable condition to follow-up with me in 6 weeks. Plan - Discharge Summary Discharge Rx Participant: No New Discharge Prescriptions: New Ibuprofen [Motrin] 600 mg PO Q6HR PRN #30 tab PRN Reason: Mild Pain (Scale 1 To 3) No Action Pnv No.95/Ferrous Fum/Folic AC [ Multivitamin Tablet] 1 each PO DAILY Discharge Medication List Pnv No.95/Ferrous Fum/Folic AC [ Multivitamin Tablet] 1 each PO DAILY 10/05/18 [History] Ibuprofen [Motrin] 600 mg PO Q6HR PRN #30 tab 03/09/22 [Rx] Follow up Appointment(s)/Referral(s): Liz Gibbs DO [Doctor of Osteopathic Medicine] - 6 Weeks Discharge Disposition: HOME SELF-CARE
--- NOTE | 2022-03-09 08:23 | P.MSEPDOC ---
Presenting Problems - Arrival Data Date of Arrival on Unit: 03/08/22 Time of Arrival on Unit: 02:28 Mode of Transport: Wheelchair - Complaint OB-Reason for Admission/Chief Complaint: Possible Onset of Labor Comment: contractions that started at 10 am Medical History - Information : 5 Para: 1 Term: 1 : 0 Abortions: Spontaneous or Elective: 3 Number of Living Children: 1 - Gestational Age Gestational Age by ERICKA (wks/days): 40 Weeks and 2 Days Review of Systems - Review of Systems Constitutional: No problems Breast: No problems ENT: No problems Cardiovascular: No problems Respiratory: No problems Gastrointestinal: No problems Genitourinary: No problems Musculoskeletal: No problems Neurological: No problems Skin: No problems Vital Signs - Temperature Temperature: 98.7 F Temperature Source: Oral - Pulse Pulse Oximetery Pulse Rate: 87 Pulse Assessment Method: Pulse Oximetry - Respirations Respiratory Rate: 14 Oxygen Delivery Method: Room Air O2 Sat by Pulse Oximetry: 97 - Blood Pressure Right Arm Blood Pressure: 104/67 Blood Pressure Mean: 79 Blood Pressure Source: Automatic Cuff Medical Screen Scoring - Cervical Exam Dilation (cm): 5 Effacement (%): 80 Station: -2 Membranes: Intact - Uterine Contractions Frequency From (mins): 2 Frequency To (mins): 3 Duration From (seconds): 40 Duration To (seconds): 70 Intensity: Strong Resting: Soft to palpation - Assessment - Baby A Baseline FHR: 130 Heart Rate - NICHD Category: Category I (Normal) NST: Reactive Physician Notification - Physician Notified Physician Notified Date: 03/08/22 Physician Notified Time: 02:28 Physician: Clarke Cook New Order Received: Yes - Notification Comment Comment: admit pt for labor Maternal Triage Index - Maternal Triage Index Presenting for scheduled procedure w/no complaint: No - Stat/Priority 1 Stat Priority 1: No - Urgent/Priority 2 Urgent Priority 2: No - Prompt/Priority 3 Prompt Priority 3: No - Non-Urgent/Priority 4 Non-Urgent Priority 4: Yes Criteria Met for Priority 4: contractions that started at 10 am Disposition - Disposition OB Disposition: Admit Transferred to:: st 12 I agree with the RN Medical Screening Exam: Yes Case reviewed; plan agreed upon as documented in EMR&OBIX.: Yes Diagnosis: ENCOUNTER FOR FULL-TERM UNCOMPLICATED DELIVERY
== END 2022-03-09 10:35 | disposition home or self-care (01) | DRG 807 ==
LOC: FBPOP 01:56 → 4FBP 02:29
PROVIDERS: ADMIT Obstetrics & Gynecology; ATTEND Obstetrics & Gynecology
PROC: 10E0XZZ Delivery of Products of Conception, External Approach (ICD-10-PCS; principal; 2022-03-08)
PROC: 0HQ9XZZ Repair Perineum Skin, External Approach (ICD-10-PCS; 2022-03-08)
PROC: 10907ZC Drainage of Amniotic Fluid, Therapeutic from Products of Conception, Via Natural or Artificial Opening (ICD-10-PCS; 2022-03-08)
DX: O70.0 First degree perineal laceration during delivery (principal); F17.210 Nicotine dependence, cigarettes, uncomplicated; J45.909 Unspecified asthma, uncomplicated; O48.0 Post-term pregnancy; O99.334 Smoking (tobacco) complicating childbirth; O99.52 Diseases of the respiratory system complicating childbirth; Z37.0 Single live birth; Z3A.40 40 weeks gestation of pregnancy
CPT/HCPCS: 59025; 80306; 81003; 85025; 86850; 86900; 86901; 99213

== ENCOUNTER → 2022-05-06 | Outpatient (CLI) | payer OTHER | END | disposition home or self-care (01) | LOC: LABWHC1 15:38 | PROVIDERS: ATTEND Obstetrics & Gynecology | DX: N91.2 Amenorrhea, unspecified (principal) | CPT/HCPCS: 36415; 84702 ==